=== PATIENT | male | born 1990 | race Caucasian/White ===

== ENCOUNTER 2017-06-09 22:33 | Emergency (ER) | payer OTHER ==
[2017-06-10] MEDS: IBUPROFEN 800 MG TAB PO (00:20)
[2017-06-10 00:44] LABS: ADD UMIC NO; UR ASCORBIC ACID NEGATIVE (NEGATIVE); UR BILIRUBIN (Dip) NEGATIVE (NEGATIVE); UR BLOOD (Dip) NEGATIVE (NEGATIVE); UR CLARITY CLEAR (CLEAR); UR COLOR YELLOW (YELLOW); UR GLUCOSE (Dip) NEGATIVE (NEGATIVE); UR KETONES (Dip) NEGATIVE (NEGATIVE); UR LEUKOCYTE ESTERASE (Dip) NEGATIVE Leu/ul (NEGATIVE); UR NITRITE (Dip) NEGATIVE (NEGATIVE); UR SPECIFIC GRAVITY (Dip) 1.018 (1.003-1.030); UR TOTAL PROTEIN (Dip) NEGATIVE (NEGATIVE); UR UROBILINOGEN (Dip) NEGATIVE (NEGATIVE)
[2017-06-10] MEDS: CEFTRIAXONE 250 MG INJ IM (01:53)
== END 2017-06-10 01:58 | disposition home or self-care (01) ==
LOC: FTE 22:33
DX: N50.811 Right testicular pain (principal); R10.2 Pelvic and perineal pain; Z85.47 Personal history of malignant neoplasm of testis
CPT/HCPCS: 74176; 76870; 81003; 87591; 96372; 99285-25

== ENCOUNTER 2017-08-17 10:58 | Day surgery (SDC) | payer OTHER ==
[~2017-08-17 10:58] MED LIST: DEXAMETHASONE 4 MG/ML 1 ML INJ; METOCLOPRAMIDE 10 MG INJ; ONDANSETRON 4 MG INJ
[2017-08-17] MEDS ORDERED: BUPIVACAINE 0.25% (MPF) 30 ML INJ (12:30)
[2017-08-17] MEDS ORDERED: CEFAZOLIN 2 GM/50 ML (PMX) 50 ML IVPB (13:00)
[2017-08-17] MEDS ORDERED: MIDAZOLAM 1 MG/ML 2 ML INJ (13:02)
[2017-08-17] MEDS ORDERED: morphine SULFATE/PF (10 MG/10 ML) INJ (13:07)
[2017-08-17] MEDS ORDERED: BUPIVACAINE 0.75%/DEXT (SPINAL) 2 ML INJ (13:10)
[2017-08-17] MEDS ORDERED: FENTAnyl 50 MCG/ML VIAL (13:17)
[2017-08-17] MEDS ORDERED: PROPOFOL 100 ML (13:27)
[2017-08-17] MEDS: BUPIVACAINE 0.5% (SDV) 30 ML INJ (14:22)
[2017-08-17] MEDS ORDERED: ONDANSETRON 4 MG INJ IV (14:30)
[2017-08-17] MEDS ORDERED: LABETALOL HCL 20MG INJ IV (14:30)
[2017-08-17] MEDS ORDERED: hydrALAzine 20 MG INJ IV (14:30)
[2017-08-17] MEDS ORDERED: HYDROmorphONE (0.2 MG/ML) 10ML SYG IV ×3 (14:30)
[2017-08-17] MEDS ORDERED: FENTAnyl 50 MCG/ML VIAL IV ×2 (14:30)
[2017-08-17] MEDS ORDERED: IPRATROPIUM (NEB) 0.5 MG/2.5 ML AMP HHN (14:30)
[2017-08-17] MEDS ORDERED: DIPHENHYDRAMINE 50 MG INJ IV (14:30)
[2017-08-17] MEDS ORDERED: MEPERIDINE 25 MG INJ IV (14:30)
[2017-08-17] MEDS ORDERED: HYDROCODONE/APAP (5/325) TAB PO (15:00)
[2017-08-17] MEDS: KETOROLAC 30 MG INJ IV (15:17)
== END 2017-08-17 16:18 | disposition home or self-care (01) ==
LOC: SDS 10:58
DX: D40.11 Neoplasm of uncertain behavior of right testis (principal); F17.200 Nicotine dependence, unspecified, uncomplicated
CPT/HCPCS: 54520; 88309; 88331

== ENCOUNTER 2017-08-18 04:06 | Emergency (ER) | payer OTHER ==
[2017-08-18 05:00] LABS: URINE BLOOD (Dip) POC Negative (NEGATIVE); URINE GLUCOSE (Dip) POC Negative (NEGATIVE); URINE KETONES (Dip) POC Negative (NEGATIVE); URINE LEUKOCYTE EST (Dip) POC Negative (NEGATIVE); URINE NITRITE (Dip) POC Negative (NEGATIVE); URINE TOTAL PROTEIN POC Trace (NEGATIVE)
== END 2017-08-18 05:51 | disposition home or self-care (01) ==
LOC: E/R 04:06
DX: R33.9 Retention of urine, unspecified (principal)
CPT/HCPCS: 51702; 81003; 99283-25